=== PATIENT | male | born 1960 | race Caucasian/White ===

== ENCOUNTER → 2016-09-24 | Outpatient (POV) | payer OTHER ==
[~2016-09-24] MED LIST: ACET-654 PO; ALBU83IN INH; HCTZ PO; LIDO5DIS36 TD; NORC10TA2 PO; TOPR50TA PO; TYLE650T25 PO; XARE20TA PO; ZEST1TAB6 PO
== END ==
LOC: M IRPOV 10:43
PROVIDERS: ATTEND Surgery
DX: I83.228 Varicose veins of left lower extremity with both ulcer of other part of lower extremity and inflammation (principal); I83.813 Varicose veins of bilateral lower extremities with pain; I83.893 Varicose veins of bilateral lower extremities with other complications

== ENCOUNTER → 2016-10-01 | Outpatient (CLI) | payer OTHER ==
--- NOTE | 2016-10-01 11:56 | REP ---
Right lower extremity duplex venous ultrasound: History: Reflux exam. Varicose veins. Findings: The deep veins are anechoic and fully compressible from the groin to the popliteal fossa on two-dimensional scanning in the right lower extremity. Color flow imaging is homogeneous and spectral Doppler interrogation is unremarkable at rest. There is no evidence of deep vein thrombosis. Reflux findings: The mid femoral vein is duplicated. Small collateral veins are seen extending off the proximal greater saphenous vein and at the distal portion at the knee. The proximal greater saphenous vein measures 7 mm in AP dimension. The greater saphenous vein measures 4.8 mm in AP dimension at mid thigh level and 5.1 mm at the knee. An anterior accessory greater saphenous vein is present although no reflux was observed within it. There was reflux greater than 0.5 seconds in the greater saphenous vein at the saphenofemoral junction as well as in the proximal mid and distal superficial femoral vein. This reflux was visible when the patient's bed was tipped but not seen in the standing scans. Impression: Positive reflux as above. No evidence of DVT. Signed by Ty Tena MD 10/01/2016 02:57 P
== END ==
LOC: M RAD 09:14
DX: I83.813 Varicose veins of bilateral lower extremities with pain (principal); I83.893 Varicose veins of bilateral lower extremities with other complications

== ENCOUNTER → 2016-11-03 | Outpatient (CLI) | payer OTHER ==
[~2016-11-03] MED LIST changes: +LIDOCAINE 2% MDV 20 ML VIAL As Ordered ONE; +LIDOCAINE 4% CREAM 5GM (LMX4) As Ordered ONE; +SODIUM TETRADECYL SULFATE(3%)30MG/ML 2ML VIAL (SOTRADECOL) As Ordered ONE
--- NOTE | 2016-11-03 15:34 | REPKIM ---
INDICATION: Patient with a history of left leg pretibial venous stasis, bilateral symptomatic varicose veins and other complications, worse on the left , presents for left lower extremity EVLT of the incompetent GSV. Duplex reflux study also showed significant reflux involving the left greater saphenous vein. The left GSV at the saphenofemoral junction demonstrates reflux with duration of 0.9 seconds and AP diameter 6.9 mm, and at the level of the mid thigh for a duration of 1.4 seconds with AP diameter 5.6 mm. Mild reflux noted through the superficial femoral vein. Lesser saphenous vein measures 4.5 mm diameter and without reflux. Patient has failed conservative treatment; utilization of compressive stockings and leg elevation. PROCEDURE: Endovenous laser ablation therapy of the incompetent GSV on the left INTERVENTIONALIST: Oliverio Gallardo MD EBL: 5 mL MEDICATIONS: Local Lidocaine DEVICE USED: 45-CM Vena[employer] EVLT [employer]DP [employer] App Lot#[id number] TECHNIQUE AND FINDINGS: Informed consent was obtained prior to the procedure. The patient was placed supine on the table. A time out was performed that verified correct procedure, site, side and materials available. Ultrasound examination was performed and focused on the saphenofemoral junction of the left leg. This confirmed significant reflux involving the greater saphenous vein as previously described. This also showed significant subcutaneous edema in the thigh and calf. The left lower extremity was prepped and draped in the usual sterile fashion. After local anesthesia with 1mL of lidocaine 1% at the skin, the incompetent greater saphenous vein just above the knee level was accessed with a 21 gauge needle and a 0.018" wire followed by a 4 Nepali sheath of the EVLT kit. The sheath was advanced over the wire to the saphenofemoral junction level and the laser fiber was advanced coaxially and its tip was positioned approximately 5 cm distal from the saphenofemoral junction. Tumescent anesthesia was given along this vein by using real-time ultrasonographic guidance and a 22 gauge spinal needle and a mixture of diluted lidocaine (12.5mL @ 2% in 237.5mL of normal saline). Endovenous laser ablation was applied along the greater saphenous vein using 6 Patel in continuous mode for a total duration of 321 seconds. A total of 1925 Joules was delivered. Ultrasonography showed shrunken and hyper-echoic of the ablated vein as usually , with persistent fully compressibility of deep veins. SteriStrips was applied on the skin, followed by 20-30 mm Hg compression stockings. The patient was then allowed to stand and instructed to walk for 15 minutes. He was then discharged back home in good and stable condition with no immediate complication. This procedure was performed with ultrasound guidance. Dr. Gallardo was present. IMPRESSION: Successful treatment of symptomatic incompetent GSV in the left lower extremity by endovenous laser ablation. PLAN: Pt was given post-procedure instructions, including contact information for a follow-up duplex ultrasound of the left lower extremity to rule out DVT and post EVLT evaluation in next several days. cc: Cayden Ríos MD [facility] CENTERLuz Marina
== END | disposition home or self-care (01) ==
LOC: M IRPRO 09:01
DX: I83.812 Varicose veins of left lower extremity with pain (principal); I83.893 Varicose veins of bilateral lower extremities with other complications; I83.228 Varicose veins of left lower extremity with both ulcer of other part of lower extremity and inflammation
CPT/HCPCS: 36478; C1888

== ENCOUNTER → 2016-11-06 | Outpatient (CLI) | payer OTHER ==
[~2016-11-06] MED LIST changes: -LIDOCAINE 2% MDV 20 ML VIAL As Ordered ONE; -LIDOCAINE 4% CREAM 5GM (LMX4) As Ordered ONE; -SODIUM TETRADECYL SULFATE(3%)30MG/ML 2ML VIAL (SOTRADECOL) As Ordered ONE
--- NOTE | 2016-11-06 11:07 | REP ---
Left lower extremity Duplex Doppler venous ultrasound: Real time compression and duplex Doppler interrogation of the left lower extremity deep venous system is performed. The left common femoral, superficial femoral and popliteal veins are fully compressible with transducer pressure and demonstrate normal spontaneous and phasic flow, without evidence of deep venous thrombosis. Thrombus is seen in the greater saphenous vein status post EVLT. Lymph nodes are seen in the left inguinal region less than 1 cm in short axis dimension. Impression: No evidence of deep venous thrombosis of the left lower extremity femoral popliteal venous system. Thrombus is seen in the greater saphenous vein status post EVLT. Signed by Jase Mcduffie MD 11/06/2016 10:58 A
== END ==
LOC: M RAD 09:55
DX: I83.92 Asymptomatic varicose veins of left lower extremity (principal); Z98.890 Other specified postprocedural states

== ENCOUNTER → 2016-11-10 | Outpatient (CLI) | payer OTHER ==
[2016-11-10 13:15] LABS: ALBUMIN 3.3 GM/DL (3.2-5.2); ALBUMIN/GLOBULIN RATIO 0.94 (1.00-1.93); ALKALINE PHOSPHATASE 97 U/L (45-117); ALT/SGPT 24 U/L (12-78); ANION GAP 10 MEQ/L (8-16); AST/SGOT 10 U/L (15-37); BILIRUBIN,TOTAL 0.3 MG/DL (0.2-1.0); BLOOD UREA NITROGEN 15 MG/DL (7-18); CALCIUM LEVEL 8.4 MG/DL (8.5-10.1); CARBON DIOXIDE LEVEL 26 MEQ/L (21-32); CHLORIDE LEVEL 103 MEQ/L (98-107); CREATININE FOR GFR 1.29 MG/DL (0.70-1.30); GLOMERULAR FILTRATION RATE > 60.0 (>56); GLUCOSE, FASTING 124 MG/DL (70-105); POTASSIUM SERUM 4.2 MEQ/L (3.5-5.1); SODIUM LEVEL 139 MEQ/L (136-145); TOTAL PROTEIN 6.8 GM/DL (6.4-8.2)
[2016-11-10 14:02] LABS: CONTROL LINE INT CTR LINE PRESENT; HIV SCRN NEGATIVE (NEGATIVE); HIV SCRN1 NEGATIVE (NEGATIVE)
== END ==
LOC: M WUC 09:03
PROVIDERS: ATTEND Family Medicine
DX: Z51.81 Encounter for therapeutic drug level monitoring (principal); Z79.899 Other long term (current) drug therapy; Z11.59 Encounter for screening for other viral diseases; Z11.4 Encounter for screening for human immunodeficiency virus [HIV]

== ENCOUNTER → 2016-11-10 | Outpatient (REF) | payer OTHER | LOC: M SFHCPLAZ 08:38 | PROVIDERS: ATTEND Internal Medicine | DX: Z51.81 Encounter for therapeutic drug level monitoring (principal); Z53.8 Procedure and treatment not carried out for other reasons ==

== ENCOUNTER → 2017-01-27 | Outpatient (CLI) | payer OTHER ==
--- NOTE | 2017-01-28 04:08 | REP ---
Clinical: Smoking history for lung screening. Technique: Axial noncontrast low-dose images from the thoracic inlet to the upper abdomen using lung screening technique. Findings: Minimal scattered fibroatelectatic changes are appreciated. No focal consolidation, nodule or mass lesion is appreciated and no discrete non solid/ground-glass densities are identified. No pleural effusion. No pneumothorax. Tracheobronchial tree is grossly patent and normal. Impression: Lung-RADS category I. Suggested management includes annual screening with low-dose CT. Signed by Beny Cardoza MD 01/28/2017 04:00 A
== END ==
LOC: M RAD 13:52
PROVIDERS: ATTEND Internal Medicine Pulmonary Disease
DX: Z12.2 Encounter for screening for malignant neoplasm of respiratory organs (principal); Z87.891 Personal history of nicotine dependence

== ENCOUNTER → 2017-04-02 | Outpatient (CLI) | payer OTHER ==
[~2017-04-02] MED LIST changes: -ACET-654 PO; +ACET1TAB17 PO; -LIDO5DIS36 TD; +LIDO5DIS41 TD; -NORC10TA2 PO; +NORC10TA21 PO
== END ==
LOC: M WUC 11:38
PROVIDERS: ATTEND Student in an Organized Health Care Education/Training Program
DX: R73.01 Impaired fasting glucose (principal)

== ENCOUNTER → 2017-05-15 | Outpatient (CLI) | payer OTHER ==
[2017-05-15 14:20] LABS: ANION GAP 7 MEQ/L (8-16); BLOOD UREA NITROGEN 26 MG/DL (7-18); CARBON DIOXIDE LEVEL 27 MEQ/L (21-32); CHLORIDE LEVEL 103 MEQ/L (98-107); CREATININE FOR GFR 1.27 MG/DL (0.70-1.30); GLOMERULAR FILTRATION RATE > 60.0 (>56); GLUCOSE, FASTING 121 MG/DL (70-105); POTASSIUM SERUM 4.6 MEQ/L (3.5-5.1); SODIUM LEVEL 137 MEQ/L (136-145)
[2017-05-18 14:11] LABS: BENZODIAZEPINES, URINE SCREEN Negative ng/mL (Cutoff=200); METHADONE, URINE SCREEN Negative ng/mL (Cutoff=300); pH, URINE 5.3 (4.5-8.9)
== END ==
LOC: M WUC 10:44
PROVIDERS: ATTEND Student in an Organized Health Care Education/Training Program
DX: Z02.83 Encounter for blood-alcohol and blood-drug test (principal); R60.0 Localized edema

== ENCOUNTER → 2017-06-11 | Outpatient (CLI) | payer OTHER ==
--- NOTE | 2017-06-11 15:34 | REP ---
Left lower extremity deep vein duplex ultrasound: Comparison is 2016. The deep veins demonstrate normal compression, normal Doppler color flow and normal Doppler waveforms with respiration and augmentation at multiple levels from the popliteal vein to the common femoral vein. There is no deep vein thrombus. Liver, thrombus is noted throughout the superficial saphenous vein. This is unchanged. Impression: No deep vein thrombus. Diffuse superficial saphenous vein thrombus. No change from the prior study. Signed by Jase Estrada MD 06/11/2017 03:26 P
== END ==
LOC: M RAD 09:19
PROVIDERS: ATTEND Surgery
DX: I87.312 Chronic venous hypertension (idiopathic) with ulcer of left lower extremity (principal)

== ENCOUNTER → 2017-06-16 | Outpatient (CLI) | payer OTHER ==
--- NOTE | 2017-06-17 06:40 | REP ---
Clinical: Venous stasis and hypertension. Technique: Mcduffie scale and color Doppler evaluation using linear high frequency transducer with reflux evaluation. Findings: Ultrasound examination of the right lower extremity deep venous structures from the common femoral vein to the popliteal vein demonstrates normal compressibility flow and wave patterns in response to respiration and augmentation. There is no evidence for deep venous thrombosis. Reflux study demonstrates minimal reflux through the common femoral vein through popliteal vein as well as the proximal through mid greater saphenous vein with reverse Trendelenburg. The proximal greater saphenous vein measuring 7.2 mm diameter and reflux of 1.5 seconds duration while the mid greater saphenous vein measures 4.2 mm diameter with reflux of 1.3 seconds duration. A small anterior accessory saphenous vein is identified without reflux along with few small collateral vessels off the greater saphenous vein without evidence for reflux. Impression: No evidence for deep venous thrombosis. Mild reflux as noted above when the patient in reverse Trendelenburg. Signed by Beny Cardoza MD 06/17/2017 06:32 A
== END ==
LOC: M RAD 09:52
PROVIDERS: ATTEND Surgery
DX: I87.2 Venous insufficiency (chronic) (peripheral) (principal)

== ENCOUNTER → 2017-06-22 | Outpatient (CLI) | payer OTHER | LOC: M PLARAD 08:05 | PROVIDERS: ATTEND Physician Assistant Surgical | DX: M65.811 Other synovitis and tenosynovitis, right shoulder (principal); Z53.8 Procedure and treatment not carried out for other reasons ==

== ENCOUNTER → 2017-07-06 | Outpatient (CLI) | payer OTHER | LOC: M PLARAD 08:03 | PROVIDERS: ATTEND Physician Assistant Surgical | DX: M65.811 Other synovitis and tenosynovitis, right shoulder (principal) ==

== ENCOUNTER → 2017-07-10 | Outpatient (REF) | payer OTHER ==
[2017-07-10 16:05] LABS: INR 1.52
== END ==
LOC: M LABDRAW1 13:17
PROVIDERS: ATTEND Physician Assistant Surgical
DX: M19.011 Primary osteoarthritis, right shoulder (principal)

== ENCOUNTER → 2017-09-05 | Outpatient (CLI) | payer OTHER ==
[2017-09-05 14:37] LABS: MEAN CORPUSCULAR HEMOGLOBIN 29.4 pg (27.0-33.0); MEAN CORPUSCULAR HGB CONC 31.7 g/dl (32.0-36.5); MEAN CORPUSCULAR VOLUME 92.9 fl (80.0-96.0); PLATELET COUNT, AUTOMATED 389 10^3/uL (150-450); RED CELL DISTRIBUTION WIDTH 14.7 % (11.5-14.5); WHITE BLOOD COUNT 11.7 10^3/uL (4.0-10.0)
[2017-09-05 14:55] LABS: ALBUMIN 3.3 GM/DL (3.2-5.2); ALKALINE PHOSPHATASE 98 U/L (45-117); ALT/SGPT 20 U/L (12-78); ANION GAP 8 MEQ/L (8-16); AST/SGOT 11 U/L (7-37); BILIRUBIN,TOTAL 0.3 MG/DL (0.2-1.0); BLOOD UREA NITROGEN 27 MG/DL (7-18); CALCIUM LEVEL 9.2 MG/DL (8.5-10.1); CARBON DIOXIDE LEVEL 27 MEQ/L (21-32); CHLORIDE LEVEL 104 MEQ/L (98-107); CHOLESTEROL LEVEL 117 MG/DL (<200); CREATININE FOR GFR 1.26 MG/DL (0.70-1.30); GLOMERULAR FILTRATION RATE > 60.0 (>56); GLUCOSE, FASTING 100 MG/DL (70-105); POTASSIUM SERUM 4.2 MEQ/L (3.5-5.1); SODIUM LEVEL 139 MEQ/L (136-145); TOTAL PROTEIN 7.4 GM/DL (6.4-8.2); TRIGLYCERIDES LEVEL 175 MG/DL (<150)
== END ==
LOC: M WUC 10:56
PROVIDERS: ATTEND Internal Medicine Cardiovascular Disease
DX: I50.9 Heart failure, unspecified (principal)

== ENCOUNTER 2017-10-27 08:17 | Outpatient (RCR) | payer OTHER | END 2017-11-18 | disposition home or self-care (01) | LOC: M PT 08:17 | DX: Z51.89 Encounter for other specified aftercare (principal); M47.816 Spondylosis without myelopathy or radiculopathy, lumbar region | CPT/HCPCS: 97010 ==

== ENCOUNTER 2017-11-19 08:17 | Outpatient (RCR) | payer OTHER | END 2017-12-19 | LOC: M PT 08:17 | DX: Z51.89 Encounter for other specified aftercare (principal); M47.816 Spondylosis without myelopathy or radiculopathy, lumbar region ==

== ENCOUNTER → 2017-12-08 | Outpatient (CLI) | payer OTHER ==
[2017-12-08 15:07] LABS: BASO # 0.1 10^3/uL (0.0-0.2); BASO % 0.9 % (0.0-1.0); EOS # 0.5 10^3/uL (0.0-0.50); EOS % 3.3 % (0.0-3.0); HEMATOCRIT 38.8 % (42.0-52.0); HEMOGLOBIN 12.2 g/dl (14.0-18.0); IMMATURE GRANULOCYTE % 2.6 % (0-3.0); LYMPH # 2.3 10^3/uL (1.5-4.5); LYMPH % 15.5 % (24.0-44.0); MEAN CORPUSCULAR HEMOGLOBIN 29.1 pg (27.0-33.0); MEAN CORPUSCULAR HGB CONC 31.4 g/dl (32.0-36.5); MEAN CORPUSCULAR VOLUME 92.6 fl (80.0-96.0); MONO # 1.1 10^3/uL (0.0-0.8); MONO % 7.3 % (0.0-5.0); NEUTROPHILS # 10.2 10^3/uL (1.8-7.7); NEUTROPHILS % 70.4 % (36.0-66.0); PLATELET COUNT, AUTOMATED 382 10^3/uL (150-450); RED BLOOD COUNT 4.19 10^6/uL (4.30-6.10); RED CELL DISTRIBUTION WIDTH 14.7 % (11.5-14.5); WHITE BLOOD COUNT 14.5 10^3/uL (4.0-10.0)
[2017-12-08 15:21] LABS: ALBUMIN 3.4 GM/DL (3.2-5.2); ALBUMIN/GLOBULIN RATIO 0.83 (1.00-1.93); ALKALINE PHOSPHATASE 115 U/L (45-117); ALT/SGPT 25 U/L (12-78); ANION GAP 8 MEQ/L (8-16); AST/SGOT 13 U/L (7-37); BILIRUBIN,TOTAL 0.2 MG/DL (0.2-1.0); BLOOD UREA NITROGEN 25 MG/DL (7-18); CARBON DIOXIDE LEVEL 28 MEQ/L (21-32); CHLORIDE LEVEL 104 MEQ/L (98-107); CREATININE FOR GFR 1.44 MG/DL (0.70-1.30); GLOMERULAR FILTRATION RATE 53.6 (>56); GLUCOSE, FASTING 123 MG/DL (70-100); POTASSIUM SERUM 4.8 MEQ/L (3.5-5.1); SODIUM LEVEL 140 MEQ/L (136-145); TOTAL PROTEIN 7.5 GM/DL (6.4-8.2)
[2017-12-08 15:52] LABS: ESTIMATED AVERAGE GLUCOSE 154 MG/DL (60-110)
== END ==
LOC: M WUC 12:24
DX: L53.9 Erythematous condition, unspecified (principal); I10 Essential (primary) hypertension; R73.03 Prediabetes
CPT/HCPCS: 80053

== ENCOUNTER → 2017-12-17 | Outpatient (CLI) | payer OTHER ==
[2017-12-17 13:31] LABS: BASO # 0.1 10^3/uL (0.0-0.2); BASO % 0.8 % (0.0-1.0); EOS # 0.4 10^3/uL (0.0-0.50); EOS % 3.5 % (0.0-3.0); HEMATOCRIT 35.9 % (42.0-52.0); HEMOGLOBIN 11.4 g/dl (13.5-17.5); IMMATURE GRANULOCYTE % 2.2 % (0-3.0); LYMPH # 1.9 10^3/uL (1.5-4.5); LYMPH % 16.2 % (24.0-44.0); MEAN CORPUSCULAR HGB CONC 31.8 g/dl (32.0-36.5); MEAN CORPUSCULAR VOLUME 91.3 fl (80.0-96.0); MONO # 0.9 10^3/uL (0.0-0.8); MONO % 7.1 % (0.0-5.0); NEUTROPHILS # 8.4 10^3/uL (1.8-7.7); NEUTROPHILS % 70.2 % (36.0-66.0); PLATELET COUNT, AUTOMATED 361 10^3/uL (150-450); RED BLOOD COUNT 3.93 10^6/uL (4.30-6.10); RED CELL DISTRIBUTION WIDTH 14.5 % (11.5-14.5); WHITE BLOOD COUNT 11.9 10^3/uL (4.0-10.0)
[2017-12-17 13:48] LABS: FOLATE 15.6 NG/ML (>5.4); VITAMIN B12 LEVEL 261 PG/ML (247-911)
[2017-12-17 14:09] LABS: FERRITIN 126 NG/ML (26-388); IRON (FE) 55 UG/DL (65-175); PERCENT SATURATION 20.9 % (19.7-50.0); TOTAL IRON BINDING CAPACITY 263 UG/DL (250-450)
[2017-12-17 14:10] LABS: CREATININE, URINE 32.4 MG/DL; MALB URINE SIEMENS < 5.0 MG/L; MAU/CREAT RATIO 15.4 MCG/MG (0.0-30.0)
[2017-12-17 14:13] LABS: ERYTHROCYTE SEDIMENTATION RATE 56 mm/hr (0-20)
== END ==
LOC: M WUC 09:49
DX: D64.9 Anemia, unspecified (principal); D72.829 Elevated white blood cell count, unspecified; E11.9 Type 2 diabetes mellitus without complications
CPT/HCPCS: 82746

== ENCOUNTER → 2018-01-05 | Outpatient (CLI) | payer OTHER | LOC: M RAD 08:21 | DX: I87.311 Chronic venous hypertension (idiopathic) with ulcer of right lower extremity (principal) | CPT/HCPCS: 93971 ==

== ENCOUNTER 2018-04-09 08:23 | Day surgery (SDC) | payer OTHER ==
[2018-04-09] MEDS ORDERED: LIDOCAINE 1% MDV 20ML VIAL SQ (08:30)
[2018-04-09] MEDS ORDERED: LR 1,000 ML IV (08:30)
[2018-04-09] MEDS ORDERED: PROPOFOL 200 MG/20 ML VIAL As Ordered ×4 (08:47→12:45)
[2018-04-09] MEDS ORDERED: LIDOCAINE 2% INJ 100 MG/5 ML SDV (FOR ANES.) As Ordered (08:47)
[2018-04-09] MEDS ORDERED: fentaNYL 100 MCG/2 ML INJECTION (J3010) As Ordered ×2 (08:48→12:16)
[2018-04-09] MEDS ORDERED: MIDAZOLAM INJ 2 MG/2 ML VIAL (J2250) As Ordered (08:48)
[2018-04-09 09:14] LABS: BEDSIDE GLUCOSE 130 MG/DL (70-105)
[2018-04-09] MEDS ORDERED: ONDANSETRON 4MG/2ML VIAL (J2405) As Ordered (12:16)
[2018-04-09] MEDS: LIDOCAINE W/EPINEPHRINE 1% 20ML VIAL As Ordered (12:19)
[2018-04-09 13:07] LABS: BEDSIDE GLUCOSE 128 MG/DL (70-105)
== END 2018-04-09 13:44 | disposition home or self-care (01) ==
LOC: M SDC 08:23
DX: I83.219 Varicose veins of right lower extremity with both ulcer of unspecified site and inflammation (principal); L97.919 Non-pressure chronic ulcer of unspecified part of right lower leg with unspecified severity; I82.4Z2 Acute embolism and thrombosis of unspecified deep veins of left distal lower extremity; I48.91 Unspecified atrial fibrillation; I10 Essential (primary) hypertension; E78.00 Pure hypercholesterolemia, unspecified; E11.9 Type 2 diabetes mellitus without complications; J44.9 Chronic obstructive pulmonary disease, unspecified; G47.33 Obstructive sleep apnea (adult) (pediatric); F17.220 Nicotine dependence, chewing tobacco, uncomplicated; K21.9 Gastro-esophageal reflux disease without esophagitis; Z79.82 Long term (current) use of aspirin; Z79.02 Long term (current) use of antithrombotics/antiplatelets; Z79.899 Other long term (current) drug therapy
CPT/HCPCS: 36475

== ENCOUNTER → 2018-04-16 | Outpatient (CLI) | payer OTHER | LOC: M RAD 08:55 | DX: I87.2 Venous insufficiency (chronic) (peripheral) (principal) | CPT/HCPCS: 93971 ==

== ENCOUNTER → 2018-05-27 | Outpatient (CLI) | payer OTHER ==
[2018-05-27 13:09] LABS: ANION GAP 10 MEQ/L (8-16); BLOOD UREA NITROGEN 24 MG/DL (7-18); CALCIUM LEVEL 9.1 MG/DL (8.5-10.1); CARBON DIOXIDE LEVEL 28 MEQ/L (21-32); CHLORIDE LEVEL 103 MEQ/L (98-107); CREATININE FOR GFR 1.52 MG/DL (0.70-1.30); GLOMERULAR FILTRATION RATE 50.4 (>56); GLUCOSE, FASTING 94 MG/DL (70-100); POTASSIUM SERUM 4.8 MEQ/L (3.5-5.1); SODIUM LEVEL 141 MEQ/L (136-145)
[2018-05-27 15:21] LABS: ESTIMATED AVERAGE GLUCOSE 137 MG/DL (60-110); HEMOGLOBIN A1c 6.4 %
== END ==
LOC: M WUC 11:31
DX: R79.89 Other specified abnormal findings of blood chemistry (principal); E11.65 Type 2 diabetes mellitus with hyperglycemia
CPT/HCPCS: 83036

== ENCOUNTER 2018-06-27 04:20 | Emergency (ER) | payer OTHER ==
[2018-06-27] MEDS: DERMABOND TOPICAL SKIN ADHESIVE TOP (05:15)
== END 2018-06-27 05:42 | disposition home or self-care (01) ==
LOC: M ED 04:20
DX: S02.2XXA Fracture of nasal bones, initial encounter for closed fracture (principal); S50.812A Abrasion of left forearm, initial encounter; S01.21XA Laceration without foreign body of nose, initial encounter; W01.198A Fall on same level from slipping, tripping and stumbling with subsequent striking against other object, initial encounter; Y92.89 Other specified places as the place of occurrence of the external cause; I48.91 Unspecified atrial fibrillation; I10 Essential (primary) hypertension; J45.909 Unspecified asthma, uncomplicated; J44.9 Chronic obstructive pulmonary disease, unspecified; K21.9 Gastro-esophageal reflux disease without esophagitis; E11.9 Type 2 diabetes mellitus without complications; F17.200 Nicotine dependence, unspecified, uncomplicated; Z79.899 Other long term (current) drug therapy; Z79.01 Long term (current) use of anticoagulants; Z79.84 Long term (current) use of oral hypoglycemic drugs
CPT/HCPCS: 70450

== ENCOUNTER → 2018-07-14 | Outpatient (REF) | payer OTHER ==
[2018-07-14 17:29] LABS: HEMATOCRIT 34.3 % (42.0-52.0); HEMOGLOBIN 10.4 g/dl (13.5-17.5); MEAN CORPUSCULAR VOLUME 95.5 fl (80.0-96.0); RED BLOOD COUNT 3.59 10^6/uL (4.30-6.10); WHITE BLOOD COUNT 15.3 10^3/uL (4.0-10.0)
[2018-07-14 17:30] LABS: BASO # 0.1 10^3/uL (0.0-0.2); BASO % 0.8 % (0.0-1.0); EOS # 0.5 10^3/uL (0.0-0.50); EOS % 3.5 % (0.0-3.0); IMMATURE GRANULOCYTE % 2.9 % (0-3.0); LYMPH # 2.1 10^3/uL (1.5-4.5); LYMPH % 13.5 % (24.0-44.0); MEAN CORPUSCULAR HGB CONC 30.3 g/dl (32.0-36.5); MONO # 0.9 10^3/uL (0.0-0.8); MONO % 5.5 % (0.0-5.0); NEUTROPHILS # 11.3 10^3/uL (1.8-7.7); NEUTROPHILS % 73.8 % (36.0-66.0); PLATELET COUNT, AUTOMATED 460 10^3/uL (150-450)
[2018-07-14 17:41] LABS: ANION GAP 9 MEQ/L (8-16); BLOOD UREA NITROGEN 35 MG/DL (7-18); CALCIUM LEVEL 8.9 MG/DL (8.5-10.1); CARBON DIOXIDE LEVEL 22 MEQ/L (21-32); CHLORIDE LEVEL 109 MEQ/L (98-107); CREATININE FOR GFR 1.56 MG/DL (0.70-1.30); GLOMERULAR FILTRATION RATE 48.9 (>56); GLUCOSE, FASTING 115 MG/DL (70-100); POTASSIUM SERUM 5.2 MEQ/L (3.5-5.1); SODIUM LEVEL 140 MEQ/L (136-145)
== END ==
LOC: M LABNEURO 13:06
DX: D64.9 Anemia, unspecified (principal); R79.89 Other specified abnormal findings of blood chemistry
CPT/HCPCS: 80048

== ENCOUNTER → 2018-08-24 | Outpatient (CLI) | payer OTHER | LOC: M SMT 09:13 | DX: R91.8 Other nonspecific abnormal finding of lung field (principal); R05 Cough | CPT/HCPCS: 71046 ==

== ENCOUNTER → 2018-08-25 | Outpatient (REF) | payer OTHER | LOC: M LAB REF 17:08 | DX: R05 Cough (principal) | CPT/HCPCS: 87205 ==

== ENCOUNTER → 2018-09-08 | Outpatient (REF) | payer OTHER ==
[~2018-09-08] MED LIST changes: -ACET1TAB17 PO; +ACET1TAB55 PO; +ALLO100T PO; +ASPI1TAB PO; +ATOR80TA59 PO; +CHLO25TA PO; +FLON1SPR; +INCR1INH INH; +LASI40TA PO; +LEXA1TAB PO; +METF10004 PO; +OMEP40CA2 PO; +POTA1TAB14 PO; +STRI1AER2 INH; -TOPR50TA PO; +TOPR50TA23 PO; +VITA100067 PO; +VITA500T PO; +VITA500T3 PO; +[UNRECOGNIZED DRUG - OTHER] INH
[2018-09-08 17:52] LABS: CALCIUM LEVEL 9.3 MG/DL (8.5-10.1); CREATININE FOR GFR 1.36 MG/DL (0.70-1.30); GLOMERULAR FILTRATION RATE 57.1 (>56); POTASSIUM SERUM 4.9 MEQ/L (3.5-5.1)
[2018-09-08 18:02] LABS: BASO # 0.1 10^3/uL (0.0-0.2); BASO % 0.9 % (0.0-1.0); EOS # 0.4 10^3/uL (0.0-0.50); EOS % 2.8 % (0.0-3.0); HEMATOCRIT 38.4 % (42.0-52.0); HEMOGLOBIN 11.2 g/dl (13.5-17.5); LYMPH % 15.3 % (24.0-44.0); MEAN CORPUSCULAR HEMOGLOBIN 26.9 pg (27.0-33.0); MEAN CORPUSCULAR HGB CONC 29.2 g/dl (32.0-36.5); MEAN CORPUSCULAR VOLUME 92.1 fl (80.0-96.0); MONO # 0.9 10^3/uL (0.0-0.8); MONO % 6.6 % (0.0-5.0); NEUTROPHILS # 9.5 10^3/uL (1.8-7.7); NEUTROPHILS % 72.9 % (36.0-66.0); PLATELET COUNT, AUTOMATED 450 10^3/uL (150-450); RED BLOOD COUNT 4.17 10^6/uL (4.30-6.10)
== END ==
LOC: M LABNEURO 12:42
PROVIDERS: ATTEND Student in an Organized Health Care Education/Training Program
DX: D72.829 Elevated white blood cell count, unspecified (principal); R79.89 Other specified abnormal findings of blood chemistry

== ENCOUNTER → 2018-09-08 | Outpatient (REF) | payer OTHER | LOC: M LAB REF 17:10 | PROVIDERS: ATTEND Internal Medicine Pulmonary Disease | DX: R05 Cough (principal) ==

== ENCOUNTER → 2019-01-05 | Outpatient (REF) | payer OTHER ==
[~2019-01-05] MED LIST changes: -ASPI1TAB PO; +ASPI81TA26 PO; -LASI40TA PO; +LASI40TA9 PO; -NORC10TA21 PO; +NORC1TAB5 PO; +TOPR50TA PO; -TOPR50TA23 PO
[2019-01-05 13:47] LABS: BASO # 0.1 10^3/uL (0.0-0.2); BASO % 0.8 % (0.0-1.0); EOS # 0.4 10^3/uL (0.0-0.50); EOS % 3.5 % (0.0-3.0); HEMATOCRIT 41.4 % (42.0-52.0); LYMPH # 2.3 10^3/uL (1.5-4.5); LYMPH % 19.3 % (24.0-44.0); MEAN CORPUSCULAR HEMOGLOBIN 26.2 pg (27.0-33.0); MEAN CORPUSCULAR VOLUME 90.4 fl (80.0-96.0); MONO # 0.9 10^3/uL (0.0-0.8); MONO % 7.2 % (0.0-5.0); NEUTROPHILS # 8.2 10^3/uL (1.8-7.7); PLATELET COUNT, AUTOMATED 375 10^3/uL (150-450); RED BLOOD COUNT 4.58 10^6/uL (4.30-6.10)
[2019-01-05 14:03] LABS: CALCIUM LEVEL 9.2 MG/DL (8.5-10.1); CHOLESTEROL RISK RATIO 4.7 (<5); CREATININE FOR GFR 1.49 MG/DL (0.70-1.30); GLOMERULAR FILTRATION RATE 51.4 (>56); POTASSIUM SERUM 4.9 MEQ/L (3.5-5.1)
[2019-01-05 14:22] LABS: HEMOGLOBIN A1c 7.1 %
[2019-01-05 14:36] LABS: CREATININE, URINE 19.3 MG/DL; MALB URINE SIEMENS < 5.0 MG/L; MAU/CREAT RATIO 25.9 MCG/MG (0.0-30.0)
== END ==
LOC: M LABNEURO 08:53
PROVIDERS: ATTEND Student in an Organized Health Care Education/Training Program
DX: D72.829 Elevated white blood cell count, unspecified (principal); E11.9 Type 2 diabetes mellitus without complications; I10 Essential (primary) hypertension; E55.9 Vitamin D deficiency, unspecified

== ENCOUNTER → 2019-02-23 | Outpatient (CLI) | payer OTHER ==
[2019-02-23 17:17] LABS: C REACTIVE PROTEIN QUANTITATIV 1.22 MG/DL (0.00-0.30)
[2019-03-01 00:06] LABS: SOLUBLE TRANSFERRIN RECEPTOR 25.5 nmol/L (12.2-27.3)
== END ==
LOC: M WUC 11:33
PROVIDERS: ATTEND Student in an Organized Health Care Education/Training Program
DX: D72.829 Elevated white blood cell count, unspecified (principal); D64.9 Anemia, unspecified

== ENCOUNTER → 2019-03-03 | Outpatient (CLI) | payer OTHER ==
--- NOTE | 2019-03-03 09:39 | REP ---
LOW DOSE LUNG SCREENING CT: Low dose lung screening CT performed in the axial plane. Comparison made with prior study of 01/27/2017. No suspicious nodular opacity is seen. There is mild scattered fibrotic change in both lungs without evidence of infiltrate. Heart is not enlarged. No pleural effusion is seen. There are degenerative changes of the spine. Old right 4th-7th rib fractures are noted laterally. No mediastinal contour abnormality is seen. IMPRESSION: Lung-RADS category [address] No suspicious nodule. Followup lung screening CT recommended in 12 months. Electronically Signed by Jase Mcduffie MD 03/03/2019 04:37 P
== END ==
LOC: M RAD 07:50
PROVIDERS: ATTEND Internal Medicine Pulmonary Disease
DX: F17.228 Nicotine dependence, chewing tobacco, with other nicotine-induced disorders (principal)

== ENCOUNTER → 2019-04-21 | Outpatient (REF) | payer OTHER ==
[~2019-04-21] MED LIST changes: +CYAN500T8 PO; +FERR325T18 PO; +FISH1000 PO; +TRAM50TA2 PO; +VITA2000 PO; -VITA500T3 PO
[2019-04-21 14:12] LABS: FOLATE 9.2 NG/ML; PERCENT SATURATION 14.7 % (19.7-50.0)
== END ==
LOC: M LAB REF 13:09
PROVIDERS: ATTEND Internal Medicine Nephrology
DX: D50.9 Iron deficiency anemia, unspecified (principal)

== ENCOUNTER 2019-05-12 10:32 | Day surgery (SDC) | payer OTHER ==
[~2019-05-12] VITALS: Ht 188 cm; Wt 170.1 kg
[~2019-05-12 10:32] MED LIST changes: +NS 1,000 ML IV ONE; +TRUL0.5I INJ
[2019-05-12] MEDS ORDERED: LIDOCAINE 2% INJ 100 MG/5 ML SDV (FOR ANES.) As Ordered ONE ×2 (12:04→12:27)
[2019-05-12] MEDS ORDERED: PROPOFOL 200 MG/20 ML VIAL As Ordered ONE (12:04)
--- NOTE | 2019-05-12 13:05 | ROOR ---
Patient Name: Chandan Khan Procedure Date: 05/12/2019 12:38 PM Date of : 1960 Age: 58 Room: [facility] Gender: Male Note Status: Finalized Procedure: Upper GI endoscopy Indications: Iron deficiency anemia Providers: Michael Sotomayor Jr, MD Referring MD: NICKI KEITA MD Requesting Provider: Medicines: Propofol per Anesthesia Complications: No immediate complications. Procedure: Pre-Anesthesia Assessment: - Prior to the procedure, a History and Physical was performed, and patient medications and allergies were reviewed. The patient is competent. The risks and benefits of the procedure and the sedation options and risks were discussed with the patient. All questions were answered and informed consent was obtained. Patient identification and proposed procedure were verified by the physician and the nurse in the pre-procedure area and in the procedure room. Mental Status Examination: alert and oriented. Airway Examination: normal oropharyngeal airway and neck mobility. Respiratory Examination: clear to auscultation. CV Examination: normal. ASA Grade Assessment: III - A patient with severe systemic disease. After reviewing the risks and benefits, the patient was deemed in satisfactory condition to undergo the procedure. The anesthesia plan was to use moderate sedation / analgesia (conscious sedation). Immediately prior to administration of medications, the patient was re-assessed for adequacy to receive sedatives. The heart rate, respiratory rate, oxygen saturations, blood pressure, adequacy of pulmonary ventilation, and response to care were monitored throughout the procedure. The physical status of the patient was re-assessed after the procedure. The Endoscope was introduced through the mouth, and advanced to the second part of duodenum. The upper GI endoscopy was accomplished without difficulty. The patient tolerated the procedure well. Findings: The upper third of the esophagus, middle third of the esophagus and lower third of the esophagus were normal. A single polyp was found at the gastroesophageal junction. Biopsies were taken with a cold forceps for histology. This was small in size and at the upper end of the barrets esophagus The cardia, gastric fundus, gastric body, gastric antrum, prepyloric region of the stomach and pylorus were normal. The duodenal bulb, first portion of the duodenum and second portion of the duodenum were normal. Two tongues of salmon-colored mucosa were present. Scattered islands of squamous mucosa were present. Impression: - Normal upper third of esophagus, middle third of esophagus and lower third of esophagus. - Gastroesophageal junction polyp(s) were found. Biopsied. - Normal cardia, gastric fundus, gastric body, antrum, prepyloric region of the stomach and pylorus. - Normal duodenal bulb, first portion of the duodenum and second portion of the duodenum. - Satartia-colored mucosa suspicious for short-segment Meraz's esophagus. Recommendation: - Discharge patient to home (ambulatory). - Return to my office in 1 week. Michael Sotomayor MD Michael Sotomayor Jr, MD 05/12/2019 1:05:15 PM Electronically signed by Michael Sotomayor Jr, MD Number of Addenda: 0 Note Initiated On: 05/12/2019 12:38 PM Estimated Blood Loss: Estimated blood loss: none.
--- NOTE | 2019-05-12 13:20 | ROOR ---
Patient Name: Chandan Khan Procedure Date: 05/12/2019 12:39 PM Date of : 1960 Age: 58 Room: [facility] Gender: Male Note Status: Finalized Procedure: Colonoscopy Indications: Iron deficiency anemia Providers: Michael Sotomayor Jr, MD Referring MD: NICKI KEITA MD Requesting Provider: Medicines: Propofol per Anesthesia Complications: No immediate complications. Procedure: Pre-Anesthesia Assessment: - Prior to the procedure, a History and Physical was performed, and patient medications and allergies were reviewed. The patient is competent. The risks and benefits of the procedure and the sedation options and risks were discussed with the patient. All questions were answered and informed consent was obtained. Patient identification and proposed procedure were verified by the physician and the nurse in the pre-procedure area and in the procedure room. Mental Status Examination: alert and oriented. Airway Examination: normal oropharyngeal airway and neck mobility. Respiratory Examination: clear to auscultation. CV Examination: normal. ASA Grade Assessment: III - A patient with severe systemic disease. After reviewing the risks and benefits, the patient was deemed in satisfactory condition to undergo the procedure. The anesthesia plan was to use moderate sedation / analgesia (conscious sedation). Immediately prior to administration of medications, the patient was re-assessed for adequacy to receive sedatives. The heart rate, respiratory rate, oxygen saturations, blood pressure, adequacy of pulmonary ventilation, and response to care were monitored throughout the procedure. The physical status of the patient was re-assessed after the procedure. The Colonoscope was introduced through the anus and advanced to the cecum, identified by the ileocecal valve. The colonoscopy was performed without difficulty. The patient tolerated the procedure well. The quality of the bowel preparation was fair. Findings: The rectum, recto-sigmoid colon, sigmoid colon, descending colon, transverse colon, ascending colon, cecum and ileocecal valve appeared normal. Non-bleeding external and internal hemorrhoids were found during endoscopy. The hemorrhoids were Grade III (internal hemorrhoids that prolapse but require manual reduction). Impression: - Preparation of the colon was fair. - The rectum, recto-sigmoid colon, sigmoid colon, descending colon, transverse colon, ascending colon, cecum and ileocecal valve are normal. - Non-bleeding external and internal hemorrhoids. - No specimens collected. Recommendation: - Discharge patient to home (ambulatory). - Repeat colonoscopy in 10 years for screening purposes. Michael Sotomayor MD Michael Sotomayor Jr, MD 05/12/2019 1:20:34 PM Electronically signed by Michael Sotomayor Jr, MD Number of Addenda: 0 Note Initiated On: 05/12/2019 12:39 PM Estimated Blood Loss: Estimated blood loss: none.
[2019-05-12 13:48] VITALS: BP 127/64
== END 2019-05-12 14:15 | disposition home or self-care (01) ==
LOC: M OPP 10:32
PROVIDERS: ATTEND Surgery
DX: K64.2 Third degree hemorrhoids (principal); D50.9 Iron deficiency anemia, unspecified; K22.8 Other specified diseases of esophagus; K31.7 Polyp of stomach and duodenum; I48.91 Unspecified atrial fibrillation; G47.30 Sleep apnea, unspecified; K21.9 Gastro-esophageal reflux disease without esophagitis; Z79.899 Other long term (current) drug therapy; F17.210 Nicotine dependence, cigarettes, uncomplicated

== ENCOUNTER → 2019-05-26 | Outpatient (REF) | payer OTHER ==
[~2019-05-26] MED LIST changes: -NS 1,000 ML IV ONE; -OMEP40CA2 PO; +OMEP40CA97 PO; +VICT18IN SUBQ
[2019-05-26 11:11] LABS: BLOOD UREA NITROGEN 16 MG/DL (7-18); CREATININE FOR GFR 1.28 MG/DL (0.70-1.30); GLOMERULAR FILTRATION RATE > 60.0 (>56)
== END ==
LOC: M LAB REF 10:36
PROVIDERS: ATTEND Surgery
DX: K22.711 Barrett's esophagus with high grade dysplasia (principal); D50.9 Iron deficiency anemia, unspecified

== ENCOUNTER → 2019-05-27 | Outpatient (CLI) | payer OTHER ==
[~2019-05-27] MED LIST changes: +ISOVUE-370 76% 100ML VIAL (Q9967) As Ordered ONE; +OMEP40CA2 PO; -OMEP40CA97 PO; -VICT18IN SUBQ
--- NOTE | 2019-05-27 14:25 | REP ---
Clinical: Esophageal disease. Technique: Axial contrast enhanced images from the thoracic inlet to the upper abdomen with coronal and sagittal re-formations. Comparison: None. Findings: The bilateral lung white are relatively well aerated. Minimal chronic-appearing posterior pleural thickening is appreciated and similar to long screening examination dated 03/03/2019. No consolidation, nodule or mass lesion is appreciated. The tracheobronchial tree is patent. Evaluation of the mediastinum demonstrates a relatively normal appearance to the esophagus. Few subcarinal lymph nodes are identified measuring up to 15 mm along with bilateral hilar lymph nodes measuring up to approximately 9.6 mm. Thoracic aorta is without aneurysm or dissection. No cardiomegaly. No pericardial effusion. Atherosclerotic changes to the coronary arteries noted. Musculoskeletal structures demonstrate age-related changes without focal abnormality. Impression: 1. The esophagus appears relatively normal by CT evaluation. 2. Few mediastinal/hilar lymph nodes are essentially nonspecific. 3. Minimal chronic changes without acute pleuroparenchymal process. Electronically Signed by Beny Cardoza MD 05/27/2019 02:16 P
== END ==
LOC: M RAD 13:27
PROVIDERS: ATTEND Surgery
DX: K22.9 Disease of esophagus, unspecified (principal)
CPT/HCPCS: 71260; Q9967

== ENCOUNTER 2019-06-01 11:21 | Outpatient (CLI) | payer OTHER ==
[~2019-06-01] VITALS: Ht 195.6 cm; Wt 172.4 kg
[~2019-06-01 11:21] MED LIST changes: -ISOVUE-370 76% 100ML VIAL (Q9967) As Ordered ONE; -OMEP40CA2 PO; +OMEP40CA97 PO
[2019-06-01 11:30] VITALS: BP 134/77
[2019-06-01 12:00] VITALS: BP 115/65
[2019-06-01] MEDS ORDERED: IRON SUCROSE 300 MG in NS 250 ML IV ONE (12:00)
[2019-06-01 13:00] VITALS: BP 119/63
[2019-06-01 14:00] VITALS: BP 122/71
[2019-06-01 14:45] VITALS: BP 121/56
[2019-07-27] MEDS ORDERED: VICT18IN SUBQ (10:03)
== END 2019-06-01 15:20 | disposition home or self-care (01) ==
LOC: M INFU 11:21
PROVIDERS: ATTEND Internal Medicine Nephrology
DX: D50.9 Iron deficiency anemia, unspecified (principal)
CPT/HCPCS: 96365; 96366; J1756

== ENCOUNTER → 2019-06-21 | Outpatient (CLI) | payer OTHER ==
[~2019-06-21] MED LIST changes: +OMEP40CA2 PO; -OMEP40CA97 PO
--- NOTE | 2019-06-21 10:25 | REP ---
CT lumbar spine without contrast: History: Stenosis. Comparison MRI study lumbar spine is from March 20, 2015. Comparison radiographs are from March 20, 2015. Technique: Helical scanning is acquired. 4 mm axial images are reformatted. Coronal and sagittal MPR images are generated CT findings: Lumbar vertebral body heights are preserved. Alignment is normal. There is some straightening. There is a benign bone island in the L3 vertebral body. There are degenerative disc changes with sclerosis and hypertrophy throughout the lumbar spine. Vacuum phenomenon are seen to some degree at each lumbar level except for L2-3. The L2-3 disc is also quite narrowed. Pedicles and posterior elements are intact. There is no evidence of spondylolysis or spondylolisthesis. There is osteoarthritic facet hypertrophy bilaterally at each level from L3-4 through L5-S1. Vascular calcification is seen in a normal caliber aorta. No extravertebral abnormality is seen. At L1-2, there is posterior osteophytic ridging and disc bulging. Pedicles are developmentally short and there is central canal stenosis at L1-2 as seen on the comparison MRI study. At L2-3, there is a large left lateral osteophyte which is bridging. This is better displayed on CT study than on the MRI exam but does not appear to be a new finding. There is mild central canal stenosis due to disc bulging. No bony neural foraminal narrowing is seen. At L3-4, there is diffuse disc bulging. Mild central canal stenosis is seen due to developmentally short pedicles, the diffuse disc bulging, and some ligamentum flavum and facet hypertrophy. This is felt to be unchanged. At L3-4, there is posterior osteophytic ridging and disc bulging. Canal size is mildly narrowed developmentally. Some facet and ligamentum flavum hypertrophy are noted. This appears unchanged. There is some foraminal discogenic spurring on the right. At L5-S1, there is facet hypertrophy. Posterior disc bulging and spurring is seen as noted on the prior MRI. Impression: Degenerative spondylosis changes as above. Multilevel central canal stenosis L1-2 through L4-5. Large left lateral bridging osteophyte at L2-3 is better displayed by CT than on prior MRI. It does not appear to be a new finding however. Electronically Signed by Ty Tena MD 06/21/2019 12:38 P
== END ==
LOC: M RAD 09:07
PROVIDERS: ATTEND Student in an Organized Health Care Education/Training Program
DX: M51.26 Other intervertebral disc displacement, lumbar region (principal); M25.78 Osteophyte, vertebrae

== ENCOUNTER → 2019-11-15 | Outpatient (CLI) | payer OTHER ==
[~2019-11-15] MED LIST changes: +ARNU1INH3 PO; +DULO1CAP5 PO; +HM V4000 PO; +MAPA500T2 PO; -OMEP40CA2 PO; +OMEP40CA97 PO; +VICT18IN SUBQ; +VITA200010 PO
--- NOTE | 2019-11-15 14:32 | REP ---
BILATERAL LOWER EXTREMITY DUPLEX DOPPLER VENOUS ULTRASOUND WITH EVALUATION FOR VENOUS REFLUX: Real-time compression and duplex Doppler interrogation of bilateral lower extremity deep venous systems is performed. Bilaterally, common femoral, superficial femoral and popliteal veins are fully compressible with transducer pressure and demonstrate normal spontaneous and phasic flow without evidence of deep venous thrombosis. Evaluation for venous reflux is performed bilaterally. On the right there is no reflux in any of the deep veins. There is an anterior accessory greater saphenous vein present without reflux. There is no reflux in the greater saphenous vein at the saphenofemoral junction, with is an AP diameter of 3 mm. The more distal greater saphenous vein is not visualized. Patient had prior ablation. There is no reflux in the lesser saphenous vein which measures 5 mm. On the left there is no reflux in any portion of the deep vein system. There is an anterior accessory greater saphenous vein present without reflux. There is no reflux in the greater saphenous vein at the saphenofemoral junction which measures 3 mm. Greater saphenous vein is not visualized distal to that, patient underwent prior ablation. There is no reflux in the lesser saphenous vein which measures 4 mm. Electronically Signed by Jase Mcduffie MD 11/15/2019 08:20 P
== END ==
LOC: M RAD 11:21
PROVIDERS: ATTEND Physician Assistant
DX: L97.821 Non-pressure chronic ulcer of other part of left lower leg limited to breakdown of skin (principal); L97.511 Non-pressure chronic ulcer of other part of right foot limited to breakdown of skin; I87.312 Chronic venous hypertension (idiopathic) with ulcer of left lower extremity; Z28.21 Immunization not carried out because of patient refusal

== ENCOUNTER → 2019-11-24 | Outpatient (REF) | payer OTHER ==
[2019-11-24 17:15] LABS: BASO # 0.1 10^3/uL (0.0-0.2); BASO % 0.8 % (0.0-1.0); EOS # 0.4 10^3/uL (0.0-0.5); EOS % 3.3 % (0.0-3.0); HEMATOCRIT 40.6 % (42.0-52.0); HEMOGLOBIN 12.7 g/dl (13.5-17.5); LYMPH # 1.9 10^3/uL (1.5-5.0); LYMPH % 16.5 % (24.0-44.0); MEAN CORPUSCULAR HEMOGLOBIN 28.9 pg (27.0-33.0); MEAN CORPUSCULAR HGB CONC 31.3 g/dl (32.0-36.5); MEAN CORPUSCULAR VOLUME 92.5 fl (80.0-96.0); MONO # 0.7 10^3/uL (0.0-0.8); NEUTROPHILS # 8.1 10^3/uL (1.5-8.5); NEUTROPHILS % 72.2 % (36.0-66.0); PLATELET COUNT, AUTOMATED 387 10^3/uL (150-450); RED BLOOD COUNT 4.39 10^6/uL (4.30-6.10); WHITE BLOOD COUNT 11.2 10^3/uL (4.0-10.0)
[2019-11-24 17:31] LABS: INR 1.04; PROTHROMBIN TIME 13.4 SECONDS (11.8-14.0)
[2019-11-24 17:39] LABS: BLOOD UREA NITROGEN 17 MG/DL (7-18); CALCIUM LEVEL 9.5 MG/DL (8.8-10.2); CARBON DIOXIDE LEVEL 31 MEQ/L (21-32); CHLORIDE LEVEL 102 MEQ/L (98-107); CREATININE FOR GFR 1.13 MG/DL (0.70-1.30); GLOMERULAR FILTRATION RATE > 60.0 (>49); GLUCOSE, FASTING 154 MG/DL (70-100); POTASSIUM SERUM 4.6 MEQ/L (3.5-5.1); SODIUM LEVEL 139 MEQ/L (136-145)
== END ==
LOC: M SFHCPLAZ 15:23
DX: Z01.818 Encounter for other preprocedural examination (principal)

== ENCOUNTER 2019-12-08 08:03 | Day surgery (SDC) | payer OTHER ==
[~2019-12-08] VITALS: Ht 188 cm; Wt 163.3 kg
[~2019-12-08 08:03] MED LIST changes: +NS 1,000 ML IV ONE
[2019-12-08] MEDS ORDERED: propofoL 200 MG/20 ML VIAL As Ordered ONE (10:49)
--- NOTE | 2019-12-08 10:49 | ROOR ---
Patient Name: Chandan Khan Procedure Date: 12/08/2019 10:24 AM Date of : 1960 Age: 59 Room: [facility] Gender: Male Note Status: Finalized Procedure: Upper GI endoscopy Indications: Meraz's high grade dysplasia Providers: Michael Sotomayor Jr, MD Referring MD: NICKI KEITA MD Requesting Provider: Medicines: Propofol per Anesthesia Complications: No immediate complications. Procedure: Pre-Anesthesia Assessment: - Prior to the procedure, a History and Physical was performed, and patient medications and allergies were reviewed. The patient is competent. The risks and benefits of the procedure and the sedation options and risks were discussed with the patient. All questions were answered and informed consent was obtained. Patient identification and proposed procedure were verified by the physician and the nurse in the pre-procedure area and in the procedure room. Mental Status Examination: alert and oriented. Airway Examination: normal oropharyngeal airway and neck mobility. Respiratory Examination: clear to auscultation. CV Examination: normal. ASA Grade Assessment: II - A patient with mild systemic disease. After reviewing the risks and benefits, the patient was deemed in satisfactory condition to undergo the procedure. The anesthesia plan was to use moderate sedation / analgesia (conscious sedation). Immediately prior to administration of medications, the patient was re-assessed for adequacy to receive sedatives. The heart rate, respiratory rate, oxygen saturations, blood pressure, adequacy of pulmonary ventilation, and response to care were monitored throughout the procedure. The physical status of the patient was re-assessed after the procedure. The Endoscope was introduced through the mouth, and advanced to the second part of duodenum. The upper GI endoscopy was accomplished without difficulty. The patient tolerated the procedure well. Findings: The upper third of the esophagus, middle third of the esophagus and lower third of the esophagus were normal. There were esophageal mucosal changes suspicious for short-segment Meraz's esophagus present at the gastroesophageal junction. This was biopsied with a cold forceps for histology. The cardia, gastric fundus and gastric body were normal. Localized moderately erythematous mucosa without bleeding was found in the gastric antrum and in the prepyloric region of the stomach. Patchy moderately erythematous mucosa and with no stigmata of bleeding was found in the duodenal bulb. The first portion of the duodenum and second portion of the duodenum were normal. Impression: - Normal upper third of esophagus, middle third of esophagus and lower third of esophagus. - Esophageal mucosal changes suspicious for short-segment Meraz's esophagus. Biopsied. - Normal cardia, gastric fundus and gastric body. - Erythematous mucosa in the antrum and prepyloric region of the stomach. - Erythematous duodenopathy. - Normal first portion of the duodenum and second portion of the duodenum. Recommendation: - Discharge patient to home (ambulatory). - Telephone my office for pathology results in 1 week. Michael Sotomayor MD Michael Sotomayor Jr, MD 12/08/2019 10:48:38 AM Electronically signed by Michael Sotomayor Jr, MD Number of Addenda: 0 Note Initiated On: 12/08/2019 10:24 AM Estimated Blood Loss: Estimated blood loss: none.
[2019-12-08 11:15] VITALS: BP 121/65
== END 2019-12-08 12:00 | disposition home or self-care (01) ==
LOC: M OPP 08:03
PROVIDERS: ATTEND Surgery
DX: K31.89 Other diseases of stomach and duodenum (principal); K22.711 Barrett's esophagus with high grade dysplasia; I48.91 Unspecified atrial fibrillation; E11.9 Type 2 diabetes mellitus without complications; F17.220 Nicotine dependence, chewing tobacco, uncomplicated; Z79.84 Long term (current) use of oral hypoglycemic drugs; Z79.891 Long term (current) use of opiate analgesic; Z79.899 Other long term (current) drug therapy; Z86.718 Personal history of other venous thrombosis and embolism

== ENCOUNTER → 2020-03-28 | Outpatient (CLI) | payer OTHER ==
[~2020-03-28] MED LIST changes: +DULO1CAP4 PO; +JARD1TAB PO; -NS 1,000 ML IV ONE; +TIZA4CAP PO; +VITA-243 PO; -VITA500T PO
[2020-03-28 12:20] LABS: BLOOD UREA NITROGEN 21 MG/DL (7-18); CALCIUM LEVEL 9.2 MG/DL (8.8-10.2); CARBON DIOXIDE LEVEL 29 MEQ/L (21-32); CHLORIDE LEVEL 103 MEQ/L (98-107); CREATININE FOR GFR 1.16 MG/DL (0.70-1.30); GLOMERULAR FILTRATION RATE > 60.0 (>49); GLUCOSE, FASTING 182 MG/DL (70-100); MAGNESIUM LEVEL 1.7 MG/DL (1.8-2.4); NT-PRO BNP 8 PG/ML (<125); PHOSPHORUS LEVEL 3.3 MG/DL (2.5-4.9); POTASSIUM SERUM 4.5 MEQ/L (3.5-5.1); SODIUM LEVEL 138 MEQ/L (136-145)
== END ==
LOC: M PLALAB 09:30
PROVIDERS: ATTEND Student in an Organized Health Care Education/Training Program
DX: I87.2 Venous insufficiency (chronic) (peripheral) (principal)

== ENCOUNTER → 2020-06-14 | Outpatient (CLI) | payer OTHER ==
--- NOTE | 2020-06-20 09:56 | REP ---
LOW DOSE LUNG SCREENING CLINICAL: History of nicotine dependence. COMPARISON: 05/27/19, 03/03/19 TECHNIQUE: Axial noncontrast images using low dose screening technique. FINDINGS: Minimal bibasilar chronic scarring noted. The lung white are otherwise clear. No consolidation, suspicious nodule or mass lesion appreciated. The tracheobronchial tree is patent. Atherosclerotic changes to the thoracic aorta and coronary arteries noted. Multiple old healed rib fractures noted. IMPRESSION: Lung-RADS 1 examination. Management recommendations included annual surveillance. MTDD
== END ==
LOC: M RAD 07:24
PROVIDERS: ATTEND Internal Medicine Pulmonary Disease
DX: Z12.2 Encounter for screening for malignant neoplasm of respiratory organs (principal); F17.228 Nicotine dependence, chewing tobacco, with other nicotine-induced disorders; I70.0 Atherosclerosis of aorta; I25.10 Atherosclerotic heart disease of native coronary artery without angina pectoris; J98.4 Other disorders of lung

== ENCOUNTER → 2020-12-05 | Outpatient (CLI) | payer OTHER ==
[~2020-12-05] MED LIST changes: +CYAN500T14 PO; -CYAN500T8 PO
== END ==
LOC: M PLARAD 12:21
PROVIDERS: ATTEND Student in an Organized Health Care Education/Training Program
DX: M51.26 Other intervertebral disc displacement, lumbar region (principal)

== ENCOUNTER → 2020-12-11 | Outpatient (CLI) | payer OTHER ==
[2020-12-11 17:10] LABS: BLOOD UREA NITROGEN 14 MG/DL (7-18); CALCIUM LEVEL 9.3 MG/DL (8.8-10.2); CARBON DIOXIDE LEVEL 29 MEQ/L (21-32); CHLORIDE LEVEL 103 MEQ/L (98-107); CREATININE FOR GFR 1.25 MG/DL (0.70-1.30); GLOMERULAR FILTRATION RATE > 60.0 (>49); GLUCOSE, FASTING 105 MG/DL (70-100); POTASSIUM SERUM 4.4 MEQ/L (3.5-5.1); SODIUM LEVEL 138 MEQ/L (136-145)
== END ==
LOC: M WUC 12:00
PROVIDERS: ATTEND Student in an Organized Health Care Education/Training Program
DX: R31.21 Asymptomatic microscopic hematuria (principal)

== ENCOUNTER → 2021-01-25 | Outpatient (CLI) | payer OTHER ==
[~2021-01-25] MED LIST changes: +ISOVUE-370 76% 100ML VIAL As Ordered ONE
--- NOTE | 2021-01-25 09:16 | REP ---
INDICATION: LUMBAGO W/ SCIATICA LT SIDE. COMPARISON: Comparison CT study of the lumbar spine is from 21 June 2019.. TECHNIQUE: Helical scanning is acquired and 4 mm axial images are generated. Coronal and sagittal MPR images are provided. FINDINGS: Lumbar vertebral body heights are preserved. There is some straightening. Alignment is normal. There is diffuse degenerative disc disease again noted. A stable bone island is noted in the right side of the L3 vertebral body unchanged from the 2019 study. There are vacuum phenomena in degenerated discs at L5-S1, L4-5, L3-4, L2-3, and L1-2. No fracture or collapse is seen. No evidence of spondylolysis or spondylolisthesis. Normal caliber abdominal aorta. No extra vertebral soft tissue abnormality seen. 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 This extends somewhat posterolaterally and could conceivably be a etiology for extradural root compression or displacement. In any event, it is unchanged. Axial and sagittal images at the L2-3 level again demonstrate mild central canal. Neuro ink. There is posterior osteophytic ridging on the left extending into the neural foramen which is unchanged. At L1-2, there is mild central canal stenosis due to diffuse disc bulging and posterior osteophytic ridging in combination with developmentally short pedicles and mild ligamentum flavum hypertrophy. These findings are unchanged from the 2019 study. At L3-4, there is diffuse disc bulging with some stool central annular calcification. Mild central canal stenosis is again noted due to this in combination with developmentally short pedicles and and ligamentum flavum hypertrophy. There is mild facet hypertrophy as well. These findings appear unchanged. At L4-L5, there is mild central canal stenosis due to posterior disc bulging and osteophytic ridging. Facet hypertrophy and ligamentum flavum hypertrophy persist. There is some foraminal discogenic spurring on the right at L4-5 unchanged. At L5-S1, there is no evidence of central canal stenosis. No thecal sac compression is appreciated. There is discogenic spurring producing neural foraminal narrowing on the right and to a lesser extent on the left. These findings appear unchanged as well. IMPRESSION: Extensive degenerative spondylosis changes with multilevel central canal stenosis again noted L1-2 through L4-5. There is multilevel discogenic spurring producing foraminal encroachment as described above. <Electronically signed by Leon Tena > 01/25/21 0912
== END ==
LOC: M RAD 08:39
PROVIDERS: ATTEND Student in an Organized Health Care Education/Training Program
DX: M47.816 Spondylosis without myelopathy or radiculopathy, lumbar region (principal); M99.63 Osseous and subluxation stenosis of intervertebral foramina of lumbar region; M25.78 Osteophyte, vertebrae; M51.26 Other intervertebral disc displacement, lumbar region
CPT/HCPCS: 72132; Q9967

== ENCOUNTER → 2021-02-05 | Outpatient (REF) | payer OTHER ==
[~2021-02-05] MED LIST changes: -ISOVUE-370 76% 100ML VIAL As Ordered ONE
== END ==
LOC: M SFHCPLAZ 15:32
PROVIDERS: ATTEND Family Medicine
DX: E11.65 Type 2 diabetes mellitus with hyperglycemia (principal); E78.5 Hyperlipidemia, unspecified; Z53.8 Procedure and treatment not carried out for other reasons

== ENCOUNTER → 2021-03-12 | Outpatient (CLI) | payer OTHER ==
[~2021-03-12] MED LIST changes: +OMEP40CA4 PO; -OMEP40CA97 PO
[2021-03-12 16:58] LABS: HEMOGLOBIN A1c 6.7 %
[2021-03-12 17:06] LABS: CHOLESTEROL RISK RATIO 4.392 (<5)
== END ==
LOC: M WUC 14:27
PROVIDERS: ATTEND Student in an Organized Health Care Education/Training Program
DX: E11.65 Type 2 diabetes mellitus with hyperglycemia (principal); E78.5 Hyperlipidemia, unspecified

== ENCOUNTER → 2021-04-11 | Outpatient (REF) | payer OTHER | LOC: M LAB REF 17:37 | PROVIDERS: ATTEND Internal Medicine Nephrology | DX: N18.2 Chronic kidney disease, stage 2 (mild) (principal) ==

== ENCOUNTER → 2021-05-07 | Outpatient (CLI) | payer OTHER ==
[2021-05-07 16:41] LABS: BLOOD UREA NITROGEN 14 MG/DL (7-18); CALCIUM LEVEL 9.9 MG/DL (8.8-10.2); CARBON DIOXIDE LEVEL 31 MEQ/L (21-32); CHLORIDE LEVEL 100 MEQ/L (98-107); CREATININE FOR GFR 1.09 MG/DL (0.70-1.30); GLOMERULAR FILTRATION RATE > 60.0 (>49); GLUCOSE, FASTING 106 MG/DL (70-100); SODIUM LEVEL 138 MEQ/L (136-145)
[2021-05-07 16:53] LABS: CREATININE, URINE 36.4 MG/DL; MALB URINE SIEMENS < 5.0 MG/L; MAU/CREAT RATIO 13.7 MCG/MG (0.0-30.0)
== END ==
LOC: M WUC 13:35
PROVIDERS: ATTEND Student in an Organized Health Care Education/Training Program
DX: I87.2 Venous insufficiency (chronic) (peripheral) (principal); E11.65 Type 2 diabetes mellitus with hyperglycemia